=== PATIENT | male | born 1995 | race Two or more races ===

== ENCOUNTER 2020-12-29 19:23 | Emergency (ER) | payer SELFPAY ==
[~2020-12-29] VITALS: Ht 172.7 cm; Wt 90.7 kg
[2020-12-30 02:06] VITALS: BP 133/88
== END 2020-12-30 02:10 | disposition home or self-care (01) ==
LOC: ER 19:23
DX: S16.1XXA Strain of muscle, fascia and tendon at neck level, initial encounter (principal); S63.502A Unspecified sprain of left wrist, initial encounter; Z88.2 Allergy status to sulfonamides; V43.02XA Car driver injured in collision with other type car in nontraffic accident, initial encounter; Y93.89 Activity, other specified; Y92.410 Unspecified street and highway as the place of occurrence of the external cause; Y99.8 Other external cause status
CPT/HCPCS: 29125; 72125; 73110